=== PATIENT | female | born 1980 | race African-American/Black ===

== ENCOUNTER 2020-02-14 13:40 | Emergency (ER) | payer SELFPAY ==
[~2020-02-14] VITALS: Ht 157.5 cm; Wt 61.0 kg
[2020-02-14 14:10] VITALS: BP 122/87
== END 2020-02-14 14:22 | disposition home or self-care (01) ==
LOC: ER 13:40
DX: L03.113 Cellulitis of right upper limb (principal); Z98.890 Other specified postprocedural states
CPT/HCPCS: 99283